=== PATIENT | female | born 1960 | race Caucasian/White ===

== ENCOUNTER → 2016-09-17 | Outpatient (CLI) | payer MEDICAID ==
[2016-09-17 07:18] LABS: Basophils # (A) 0.1 k/uL (0-0.2); Basophils % (A) 1 %; CH 30.1; CHCM 32.3; Eosinophils # (A) 0.1 k/uL (0-0.7); Eosinophils % (A) 3 %; HCT 42.3 % (34.0-46.0); HDW 2.19; HGB 13.6 gm/dL (11.4-16.0); Luc # (Auto) 0.06; Luc % (Auto) 2; Lymphocytes # (A) 0.7 k/uL (1.0-4.8); Lymphocytes % (A) 17 %; MCH 30.2 pg (25.0-35.0); MCHC 32.3 g/dL (31.0-37.0); MCV 93.7 fL (80.0-100.0); Mean Platelet Volume 7.6; Monocytes # (A) 0.3 k/uL (0-1.0); Monocytes % (A) 7 %; Neutrophils # (A) 2.8 k/uL (1.3-7.7); Neutrophils % (A) 71 %; RBC 4.51 m/uL (3.80-5.40); RDW 12.8 % (11.5-15.5); WBC (Perox) 3.98
[2016-09-17 07:30] LABS: ALT 49 U/L (9-52); AST 36 U/L (14-36); Alkaline Phosphatase 78 U/L (38-126); Anion Gap 10 mmol/L; Blood Urea Nitrogen 19 mg/dL (7-17); Calcium 9.4 mg/dL (8.4-10.2); Carbon Dioxide 28 mmol/L (22-30); Chloride 103 mmol/L (98-107); Cholesterol 224 mg/dL (<200); Glucose 87 mg/dL (74-99); HDL Cholesterol 87 mg/dL (40-60); Non-African American GFR(MDRD) >60 (>60 ml/min/1.73 sqM); Potassium 4.3 mmol/L (3.5-5.1); Sodium 141 mmol/L (137-145); Total Bilirubin 0.5 mg/dL (0.2-1.3); Total Protein 7.5 g/dL (6.3-8.2); Triglycerides 47 mg/dL (<150)
[2016-09-17 08:53] LABS: Erythrocyte Sedimentation Rate 8 mm/hr (0-20)
[2016-09-17 10:08] LABS: Rheumatoid Factor, Qnt <9 IU/mL (<12)
== END | disposition home or self-care (01) ==
LOC: LABWHC1 06:49
PROVIDERS: ATTEND Family Medicine
DX: Z00.00 Encounter for general adult medical examination without abnormal findings (principal); M25.50 Pain in unspecified joint; F32.9 Major depressive disorder, single episode, unspecified
CPT/HCPCS: 36415; 80053; 80061; 84443; 85025; 85652; 86038; 86431

== ENCOUNTER → 2019-06-26 | Outpatient (CLI) | payer MEDICAID ==
--- NOTE | 2019-06-27 15:05 | MR ---
EXAMINATION TYPE: MR ankle LT wo con DATE OF EXAM: 06/26/2019 COMPARISON: None HISTORY: Left ankle pain, swelling, and clicking Standard multiplanar, multisequence MRI departmental protocol Multiplanar, multisequence images of the left ankle were acquired. FINDINGS: Achilles tendon is intact. Plantar fascia appears intact. There is mild pes planus. There is mild ank le joint effusion. The medial and lateral flexor tendons of the ankle appear intact. There is some sp urring at the talonavicular joint. Ankle mortise is anatomic. The collateral ligaments appear intact. There is a plantar calcaneal spur. There is minimal edema on both sides of the subtalar joint anteri jackelyn. There is mild subcutaneous edema around the lower leg. IMPRESSION: Pes planus. Plantar calcaneal spurring. Ankle joint effusion consistent with nonspecific synovitis. M ild subcutaneous edema. 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 Mild osteoarthritis of the anterior subtalar joint.
== END | disposition home or self-care (01) ==
LOC: RADMRIMAIN 16:36
PROVIDERS: ATTEND Podiatrist Foot & Ankle Surgery
DX: M19.072 Primary osteoarthritis, left ankle and foot (principal); M21.42 Flat foot [pes planus] (acquired), left foot; M77.32 Calcaneal spur, left foot

== ENCOUNTER → 2020-08-12 | Outpatient (CLI) | payer MEDICAID ==
[2020-08-12 12:16] LABS: Basophils # (A) 0.1 k/uL (0-0.2); Basophils % (A) 1 %; Eosinophils # (A) 0.2 k/uL (0-0.7); Eosinophils % (A) 3 %; HCT 40.1 % (34.0-46.0); HGB 13.3 gm/dL (11.4-16.0); Lymphocytes # (A) 1.2 k/uL (1.0-4.8); Lymphocytes % (A) 22 %; MCH 31.1 pg (25.0-35.0); MCHC 33.1 g/dL (31.0-37.0); MCV 93.9 fL (80.0-100.0); Mean Platelet Volume 7.7; Monocytes # (A) 0.3 k/uL (0-1.0); Monocytes % (A) 5 %; Neutrophils # (A) 3.8 k/uL (1.3-7.7); Neutrophils % (A) 69 %; Platelet Count 257 k/uL (150-450); RBC 4.27 m/uL (3.80-5.40); RDW 12.3 % (11.5-15.5); WBC 5.5 k/uL (3.8-10.6)
[2020-08-12 14:42] LABS: Erythrocyte Sedimentation Rate 8 mm/hr (0-20)
[2020-08-12 19:50] LABS: ALT 20 U/L (8-44); AST 26 U/L (13-35); African American GFR (CKD) 115.6 (60.0-200.0); Albumin/Globulin Ratio 2.19 (1.60-3.17); Alkaline Phosphatase 83 U/L (41-126); Calcium 9.7 mg/dL (8.7-10.3); Carbon Dioxide 27.2 mmol/L (21.6-31.8); Chloride 106 mmol/L (96-109); Chol/HDL Ratio 2.65; Cholesterol 217 mg/dL (0-200); Globulin 2.1 g/dL (1.6-3.3); Glucose 83 mg/dL (70-110); LDL Cholesterol,Calculated 122.4 mg/dL (0.0-131.0); Non-African American GFR(CKD) 99.8 (60.0-200.0); Potassium 4.5 mmol/L (3.5-5.5); Rheumatoid Factor, Qnt <4 IU/mL (0-15); Sodium 141 mmol/L (135-145); Total Bilirubin 0.3 mg/dL (0.3-1.2); Total Protein 6.7 g/dL (6.2-8.2)
[2020-08-12 20:29] LABS: Hemoglobin A1C 5.5 % (4.0-6.0)
[2020-08-12 21:03] LABS: Cyclic Citrullinated Pep IgG NEGATIVE (NEGATIVE)
== END | disposition home or self-care (01) ==
LOC: LABWHC1 10:02
PROVIDERS: ATTEND Family Medicine
DX: Z00.00 Encounter for general adult medical examination without abnormal findings (principal); I10 Essential (primary) hypertension; Z79.899 Other long term (current) drug therapy
CPT/HCPCS: 36415; 80053; 80061; 83036; 84443; 85025; 85652; 86200; 86431

== ENCOUNTER → 2022-03-01 | Outpatient (CLI) | payer MEDICAID ==
--- NOTE | 2022-03-02 03:38 | MR ---
EXAMINATION TYPE: MR ankle RT wo con DATE OF EXAM: 03/01/2022 COMPARISON: None HISTORY: Right ankle pain, swelling, clicking, and locking for 3 years. Multiplanar multi echo imaging of the right ankle with no contrast. The Achilles tendon is intact. Plantar fascia appears intact. The medial and lateral flexor tendons s how no sign of a tear. There is a moderate ankle joint effusion. The talus is intact. Ankle joint spa ce is fairly normal. The collateral ligaments of the ankle appear intact. No evidence of focal bone d estruction. There is mild subcutaneous edema around the hindfoot. There is plantar calcaneal spurring . There is slight hyperextension of the talonavicular joint IMPRESSION: Moderate ankle joint effusion consistent with some synovitis. Mild plantar calcaneal spurring. No israel dence of tendon tear. No significant arthritic disease. There is a mild extension of the talonavicula r joint that could relate to some ligamentous instability and developing pes planus.
== END | disposition home or self-care (01) ==
LOC: RADMRIMAIN 10:31
PROVIDERS: ATTEND Orthopaedic Surgery Foot and Ankle Surgery
DX: M77.31 Calcaneal spur, right foot (principal)

== ENCOUNTER → 2023-01-01 | Outpatient (CLI) | payer MEDICAID ==
[2023-01-01 10:13] VITALS: BP 126/76; PULSE 65; RESP 15; TEMP 97.8
--- NOTE | 2023-01-01 11:07 | P.HPOB ---
History of Present Illness H&P Date: 01/01/23 Chief Complaint: The patient is here for her routine gynecologic exam and ma mmogram. This is a 62-year-old with an LMP of 2012. She is here to establish with this office. It has been about 4 years since her last pelvic exam. She is status post [facility] for benign reasons. She is without gynecologic complaints. She has a history of genital HSV, but has not had any outbreaks recently. Review of Systems The patient's weight has been stable over the last year. She denies respiratory, cardiac, or G.I. problems. Past Medical History Past Medical History: Asthma Additional Past Medical History / Comment(s): asthma as child. 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 No other STDs. History of Any Multi-Drug Resistant Organisms: None Reported Past Surgical History: Breast Surgery, Section, Hysterectomy, Orthopedic Surgery, Tubal Ligation Additional Past Surgical History / Comment(s): left knee arthroscopy x 2, rt breast lumpectomy. section 2. Robotic TLH 2012. Colonoscopy 2014. Past Anesthesia/Blood Transfusion Reactions: Motion Sickness Past Psychological History: Anxiety (She denies any current depression.) Additional Psychological History / Comment(s): OCD. Smoking Status: Never smoker Past Alcohol Use History: Occasional (1-2 per week.) Past Drug Use History: None Reported Additional History: She has been since 2000 and this is her second marriage. She works in the [employer]. - Past Family History Mother Family Medical History: Cancer Additional Family Medical History / Comment(s): Lung cancer. Maternal grandmother had breast cancer. Father Family Medical History: Cancer Additional Family Medical History / Comment(s): Colon cancer. . Medications and Allergies Home Medications Medication Instructions Recorded Confirmed Type FLUoxetine HCL [PROzac] 40 mg PO BID 07/19/15 01/01/23 History Allergies Allergy/AdvReac Type Severity Reaction Status Date / Time acetaminophen [From Tylenol] Allergy SOB, cough Verified 01/01/23 10:09 prochlorperazine Allergy tongue Verified 01/01/23 10:09 [From Compazine] swelling prochlorperazine edisylate Allergy tongue Verified 01/01/23 10:09 [From Compazine] swelling prochlorperazine maleate Allergy tongue Verified 01/01/23 10:09 [From Compazine] swelling Exam Vital Signs Temp Pulse Resp BP Pulse Ox 01/01/23 10:09 97.8 F 65 15 126/76 96 Intake and Output 12/31/22 01/01/23 01/01/23 22:59 06:59 14:59 Other: Weight 64.864 kg Height 4 feet 11 inches, weight 143 pounds, BMI 28.9. This is a well-developed well-nourished white female who is alert and oriented times 3 in no acute distress. HEENT: Within normal limits. NECK: Supple without mass or thyromegaly. CHEST AND LUNGS: Clear to auscultation. HEART: Regular rate and rhythm. BREASTS: Are without mass or discharge. AXILLARY EXAM: Negative for adenopathy. BACK: Negative for CVA tenderness. ABDOMEN: Soft, nontender, without palpable masses. PELVIC EXAM: External genitalia appears normal with mild atrophy. Vagina appears normal with mild atrophy. There is no evidence of prolapse. Bimanual examination is negative for mass or tenderness. RECTAL EXAM: Rectovaginal exam is negative for mass or tenderness and is negative for occult blood. EXTREMITIES: Nontender. IMPRESSION: 1. 62-year-old menopausal female status post TLH for benign reasons, with normal gynecologic exam. 2. History of genital HSV in the past with no recent outbreaks. PLAN: 1. Pap smears have been discontinued. 2. Self breast awareness was discussed with the patient. We have also discussed symptoms associated with inflammatory breast cancer. 3. Screening mammogram will be done today. 4. Osteoporosis prevention was discussed. I have stressed the importance of adequate calcium, vitamin D and regular exercise. Recommended amounts of calcium and vitamin D were also discussed. She believes she had a normal bone density test done about 10 years ago. I recommended repeating the bone density test. She would like to do it next year at her well woman examination. 5. She believes she is due for her colonoscopy and will arrange this through her PCP. 6. She was advised to return in one year for her annual well woman exam.
--- NOTE | 2023-01-02 20:56 | MM ---
Reason for Exam: Screening (asymptomatic). Last mammogram was performed 7 year(s) and 3 month(s) ago. Patient History: Menarche at age 11. First Full-Term at age 31. Late child-bearing (after 31). Hysterectomy at age 52. Postmenopausal. Hormonal Contraceptives for 15 years from age 19 until age 34. 01/06/2016, Benign Core Biopsy on the right side. 11/10/2015, Benign Core Biopsy on the right side. 03/21/2011, Benign Core Biopsy on the left side. 03/21/2011, Benign Core Biopsy on the left side. 06/10/2003, Benign Ultrasound-Guided Core Biopsy on the right side. 06/10/2003, Benign Ultrasound-Guided Cyst Aspiration on the right side. Paternal grandmother had breast cancer. Risk Values: Beatriz 5 year model risk: 3.4%. NCI Lifetime model risk: 15.5%. Prior Study Comparison: 10/18/2015 Bilateral Screening Mammogram, [facility]. 11/10/2015 Right Diagnostic Mammogram, [facility]. 07/13/2016 Right Diagnostic Mammogram, [facility]. Tissue Density: The breast tissue is heterogeneously dense. This may lower the sensitivity of mammography. Findings: Analyzed By CAD. Bilateral areas of asymmetric density largely unchanged. A focal asymmetry 12:00 central right breast is more defined. Further evaluation is recommended. 2. Microclips in the left breast from prior biopsies. Overall Assessment: Incomplete: need additional imaging evaluation, BI-RAD 0 Management: Special View Mammogram of the right breast. For the 12:00 central focal asymmetry middle depth.. Targeted right breast ultrasound if any persisting abnormality. [facility] will attempt to contact patient to return for supplemental views and ultrasound if indicated. Electronically signed and approved by: Antoinette Weems M.D. Radiologist
== END ==
LOC: WWCWWP 10:03
PROVIDERS: ATTEND Obstetrics & Gynecology
DX: Z12.31 Encounter for screening mammogram for malignant neoplasm of breast (principal); Z01.419 Encounter for gynecological examination (general) (routine) without abnormal findings; J45.909 Unspecified asthma, uncomplicated; F41.9 Anxiety disorder, unspecified; F42.9 Obsessive-compulsive disorder, unspecified; Z80.0 Family history of malignant neoplasm of digestive organs; Z80.1 Family history of malignant neoplasm of trachea, bronchus and lung; Z80.3 Family history of malignant neoplasm of breast; Z88.6 Allergy status to analgesic agent; Z88.8 Allergy status to other drugs, medicaments and biological substances
CPT/HCPCS: 77063; 77067

== ENCOUNTER 2023-08-13 10:10 | Day surgery (SDC) | payer MEDICAID ==
[~2023-08-13 10:10] MED LIST: LACTATED RINGERS 1,000 ML IV SCH; LIDOCAINE 1% (10MG/ML) FOR IV START INTRADERMA PRN
[2023-08-13 10:41] VITALS: RESP 16; TEMP 97.9
[2023-08-13] MEDS ORDERED: PROPOFOL 10 MG/ML 20 ML VIAL IV ONE (10:58)
--- NOTE | 2023-08-13 11:07 | P.GSHP ---
History of Present Illness H&P Date: 08/13/23 Chief Complaint: Colon cancer screening 63-year-old female here for colonoscopy. Last colonoscopy 8 years ago. Family history of colon cancer in father. Patient with history of rectal adenoma Past Medical History Past Medical History: Asthma Additional Past Medical History / Comment(s): asthma as child. 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 No other STDs. History of Any Multi-Drug Resistant Organisms: None Reported Past Surgical History: Breast Surgery, Section, Hysterectomy, Orthopedic Surgery, Tubal Ligation Additional Past Surgical History / Comment(s): left knee arthroscopy x 2, rt breast lumpectomy. section 2. Robotic assisted vaginal hysterectomy 2013. Colonoscopy 2015. Past Anesthesia/Blood Transfusion Reactions: No Reported Reaction, Motion Sickness Smoking Status: Never smoker - Past Family History Mother Family Medical History: Cancer Additional Family Medical History / Comment(s): Lung cancer. Maternal grandmother had breast cancer. Father Family Medical History: Cancer Additional Family Medical History / Comment(s): Colon cancer. . Medications and Allergies Home Medications Medication Instructions Recorded Confirmed Type FLUoxetine HCL [PROzac] 80 mg PO DAILY 07/19/15 08/13/23 History Naproxen Sodium [Aleve] 1 day PO DAILY PRN 08/13/23 08/13/23 History Allergies Allergy/AdvReac Type Severity Reaction Status Date / Time acetaminophen [From Tylenol] Allergy SOB, cough Verified 08/13/23 10:41 prochlorperazine Allergy tongue Verified 08/13/23 10:41 [From Compazine] swelling prochlorperazine edisylate Allergy tongue Verified 08/13/23 10:41 [From Compazine] swelling prochlorperazine maleate Allergy tongue Verified 08/13/23 10:41 [From Compazine] swelling Surgical - Exam Vital Signs Temp Pulse Resp BP Pulse Ox 97.9 F 59 L 16 134/71 95 08/13/23 10:39 08/13/23 10:39 08/13/23 10:39 08/13/23 10:39 08/13/23 10:39 Physical exam: General: Well-developed, well-nourished HEENT: Normocephalic, sclerae nonicteric Abdomen: Nontender, nondistended Extremities: No edema Neuro: Alert and oriented Assessment and Plan (1) Colon cancer screening Narrative/Plan: Will proceed with colonoscopy at this time. Current Visit: No Status: Acute Code(s): Z12.11 - ENCOUNTER FOR SCREENING FOR MALIGNANT NEOPLASM OF COLON SNOMED Code(s): 034425950
--- NOTE | 2023-08-13 11:24 | P.PCN ---
Date of Procedure: 08/13/23 Procedure(s) Performed: PREOPERATIVE DIAGNOSIS: Screening with history of polyps and family history of colon cancer POSTOPERATIVE DIAGNOSIS: Cecal polyp, diverticulosis PROCEDURE: Colonoscopy with cold biopsy, snare polypectomy, and clip placement ANESTHESIA: MAC SURGEON: Abdiel Javier M.D. SPECIMENS: Polyp ENDOSCOPIC PROCEDURE: The patient was placed on the endoscopy table in the left decubitus position. The Olympus colonoscope was inserted into the anus and passed under direct visualization to the base of the cecum. The appendiceal orifice was visualized. From that point the scope was slowly withdrawn inspecting all surfaces carefully. There was noted to be a small sessile area at the base of the cecum. It was unclear at first whether this represented adenomatous tissue. A cold biopsy took place. Unfortunately after the cold biopsy which was quite superficial some oozing was noted that persisted. The polypoid tissue was then removed using the snare with cautery technique. I decided to place a clip there given the location and the propensity for bleeding. The remainder of the cecum and ascending transverse descending sigmoid and rectum were free of any neoplastic or polypoid lesions. The patient had mild left-sided diverticulosis. Digital rectal examination was normal. The patient was taken to the recovery room in stable condition per anesthesia guidelines. RECOMMENDATIONS: Biopsies results. Anticipate repeat colonoscopy 5 years.
[2023-08-13 12:21] VITALS: BP 135/61; PULSE 75
== END 2023-08-13 12:25 | disposition home or self-care (01) ==
LOC: ORWHC2ENDO 10:10
PROVIDERS: ATTEND Surgery
DX: Z12.11 Encounter for screening for malignant neoplasm of colon (principal); K63.5 Polyp of colon; J45.909 Unspecified asthma, uncomplicated; Z80.0 Family history of malignant neoplasm of digestive organs; Z86.010 Personal history of colon polyps; Z88.6 Allergy status to analgesic agent; Z80.3 Family history of malignant neoplasm of breast; Z88.8 Allergy status to other drugs, medicaments and biological substances; Z80.1 Family history of malignant neoplasm of trachea, bronchus and lung
CPT/HCPCS: 88305; 45380; 45385; J2704; 45382

== ENCOUNTER → 2023-10-25 | Outpatient (CLI) | payer MEDICAID ==
--- NOTE | 2023-10-25 11:21 | MM ---
Reason for Exam: Follow-up at short interval from prior study. Last screening mammogram was performed 9 month(s) ago. Patient History: Menarche at age 11. First Full-Term at age 31. Late child-bearing (after 31). Hysterectomy at age 52. Postmenopausal. Patient has history of breast feeding. Hormonal Contraceptives for 15 years from age 19 until age 34. 01/06/2016, Benign Core Biopsy on the right side. 11/10/2015, Benign Core Biopsy on the right side. 03/21/2011, Benign Core Biopsy on the left side. 03/21/2011, Benign Core Biopsy on the left side. 06/10/2003, Benign Ultrasound-Guided Core Biopsy on the right side. 06/10/2003, Benign Ultrasound-Guided Cyst Aspiration on the right side. Paternal grandmother had breast cancer. Risk Values: Beatriz 5 year model risk: 3.5%. NCI Lifetime model risk: 15.0%. Prior Study Comparison: 11/10/2015 Right Diagnostic Mammogram, [facility]. 07/13/2016 Right Diagnostic Mammogram, [facility]. 01/01/2023 Bilateral MG 3D screening mammo w/cad, [facility]. 01/08/2023 Right MG 3D work up w/cad RT, [facility]. Tissue Density: Right: The breast tissue is heterogeneously dense. This may lower the sensitivity of mammography. Findings: Analyzed By CAD. There is an asymmetric density remain unchanged. The previous central right cc asymmetric density has not persisted. No significant change from prior exams. Overall Assessment: Benign, BI-RAD 2 Management: Screening Mammogram of both breasts in 3 months. In time for the patient's annual exam. See note below in regards to patient's increased 5 year Beatriz score. Results were given to the patient verbally at the time of exam. Patient should continue monthly self-breast exams. A clinical breast exam by your physician is recommended on an annual basis. This exam should not preclude additional follow-up of suspicious palpable abnormalities. Note on Beatriz scores and lifetime risk: 1. A Beatriz score greater than 3% is considered moderate risk. If this is the case, consider specialist referral to assess eligibility for a risk reducing agent. 2. If overall lifetime risk for the development of breast cancer is 20% or higher, the patient may qualify for future screening with alternating mammogram and breast MRI. Electronically signed and approved by: Antoinette Weems M.D. Radiologist
== END | disposition home or self-care (01) ==
LOC: RADMAMWWP 09:58
PROVIDERS: ATTEND Obstetrics & Gynecology
DX: R92.331 Mammographic heterogeneous density, right breast (principal); Z78.0 Asymptomatic menopausal state; Z80.3 Family history of malignant neoplasm of breast
CPT/HCPCS: 77061; 77065

== ENCOUNTER → 2023-10-25 | Outpatient (CLI) | payer MEDICAID ==
--- NOTE | 2023-10-25 10:45 | P.PN ---
Progress Note - Text Progress Note Date: 10/25/23 I spoke with the patient by phone. She is complaining of urinary frequency and it feels like the start of a UTI which she has had in the past. She says they typically become much worse with time. She denies dysuria. 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 Impression: probable cystitis UTI Plan: Macrobid PO bid x 7d. Call if symptoms are not improving or if problems. The e-prescription will be sent to [facility] in [place].
== END ==
LOC: WWCWWP 10:37
PROVIDERS: ATTEND Obstetrics & Gynecology
DX: N39.0 Urinary tract infection, site not specified (principal); Z88.1 Allergy status to other antibiotic agents; Z88.6 Allergy status to analgesic agent